=== PATIENT | male | born 1955 | race American Indian/Alaskan Native ===

== ENCOUNTER 2016-09-25 14:49 | Emergency (ER) | payer MEDICAID ==
[2016-09-25 15:34] LABS: Basophils % (Auto) 0.7 % (0.0-1.8); Eosinophils % (Auto) 0.4 % (0.0-4.3); Hematocrit 49.8 % (35.5-45.6); Hemoglobin 17.3 gm/dl (11.8-15.2); Mean Corpuscular HGB Conc 35 % (32-34); Mean Corpuscular Hemoglobin 31 pg (28-32); Mean Corpuscular Volume 88 fl (84-94); Platelet Count 162 K/mm3 (140-440); Red Blood Count 5.68 M/mm3 (3.65-5.03); Red Cell Distribution Width 13.3 % (13.2-15.2)
[2016-09-25 15:37] LABS: Anion Gap 25 mmol/L; Blood Urea Nitrogen 7 mg/dL (9-20); Carbon Dioxide 19 mmol/L (22-30); Chloride 98.2 mmol/L (98-107); Glucose 88 mg/dL (75-100); Potassium 3.2 mmol/L (3.6-5.0); Sodium 139 mmol/L (137-145)
[2016-09-25 16:11] LABS: Urine Drugs of Abuse Note Disclamer
[2016-09-25 16:18] LABS: Bilirubin,Urine NEG (Negative); Blood,Urine NEG (Negative); Ketones,Urine NEG (Negative); Leukocyte Esterase,Urine NEG (Negative); Nitrite,Urine NEG (Negative); Protein,Urine <15 mg/dL mg/dL (Negative); Urobilinogen,Urine < 2.0 mg/dL (<2.0)
--- NOTE | 2016-09-25 22:06 | Emergency Department Report ---
HPI - General Chief Complaint: Psych Time Seen by Provider: 09/25/16 21:30 - HPI HPI: This is a 60-year-old Afro-[place] male presents to the emergency department with complaint of depression, suicidal ideations and homicidal ideations. He has a past medical history of hypertension. He has a history of alcohol and drug abuse and a psychiatric history of schizophrenia. The patient says that he has been out of his medications including Zyprexa, Wellbutrin, trazodone. He says that 5 days ago he tried to overdose on some pills but was unsuccessful. He admits to drinking some alcohol this evening. He does not have a primary care physician or a psychiatrist and says he is looking for some help. There is no particular person that he is angry towards or has his homicidal ideations towards but just says that he has been very angry lately including at himself. ED Past Medical Hx - Past Medical History Hx Hypertension: Yes Hx Heart Attack/AMI: No Hx Congestive Heart Failure: No Hx Diabetes: No Hx Headaches / Migraines: Yes Hx Psychiatric Treatment: Yes (schizophrenia,alcohol abuse,drug abuse) Additional medical history: gout - Social History Smoking Status: Current Every Day Smoker Substance Use Type: Alcohol, Cocaine, Marijuana, Other - Medications Home Medications: Home Medications Medication Instructions Recorded Confirmed Last Taken Type OLANzapine [ZyPREXA] 5 mg PO DAILY 07/17/13 09/25/16 1 Month Ago History buPROPion [Wellbutrin] 100 mg PO DAILY 07/17/13 09/25/16 1 Month Ago History traZODone [Desyrel] 150 mg PO HS 07/17/13 09/25/16 1 Month Ago History Indomethacin 50 mg PO Q8H PRN #15 capsule 08/08/15 09/25/16 1 Month Ago Rx Lisinopril/Hydrochlorothiazide 1 tab PO QDAY #30 tablet 08/08/15 09/25/16 1 Month Ago Rx [Zestoretic 10-12.5 mg] methylPREDNISolone [Medrol Dose 4 mg PO QAM #1 pack 08/08/15 09/25/16 1 Month Ago Rx Ej] ED Review of Systems ROS: Stated complaint: SUICIDAL Other details as noted in HPI Comment: All other systems reviewed and negative Constitutional: denies: chills, fever Eyes: denies: eye pain, eye discharge, vision change ENT: denies: ear pain, throat pain Respiratory: denies: cough, shortness of breath, wheezing Cardiovascular: denies: chest pain, palpitations Gastrointestinal: denies: abdominal pain, nausea, diarrhea Genitourinary: denies: urgency, dysuria Musculoskeletal: denies: back pain, joint swelling, arthralgia Skin: denies: rash, lesions Neurological: denies: headache, weakness, paresthesias Psychiatric: depression, auditory hallucinations, homicidal thoughts, suicidal thoughts Physical Exam - Physical Exam Vital Signs: Vital Signs 09/25/16 14:54 Temperature 98.5 F Pulse Rate 108 H Respiratory 18 Rate Blood Pressure 146/111 O2 Sat by Pulse 97 Oximetry Physical Exam: GENERAL: The patient is well-developed well-nourished. HEENT: Normocephalic. Atraumatic. Extraocular motions are intact. Patient has moist mucous membranes. Pupils equal reactive to light bilaterally. NECK: Supple. Trachea is midline. CHEST/LUNGS: Clear to auscultation. There is no respiratory distress noted. HEART/CARDIOVASCULAR: Regular. There is no tachycardia. There is no gallop rub or murmur. ABDOMEN: Abdomen is soft, nontender. Patient has normal bowel sounds. There is no abdominal distention. SKIN: Skin is warm and dry. NEURO: The patient is awake, alert, and oriented. The patient is cooperative. The patient has no focal neurologic deficits. The patient has normal speech and gait. MUSCULOSKELETAL: There is no tenderness or deformity. There is no limitation range of motion. There is no evidence of acute injury. ED Course Vital Signs 09/25/16 14:54 Temperature 98.5 F Pulse Rate 108 H Respiratory 18 Rate Blood Pressure 146/111 O2 Sat by Pulse 97 Oximetry ED Medical Decision Making - Lab Data Result diagrams: 09/25/16 15:07 09/25/16 15:07 - Medical Decision Making 60-year-old male presents to the emergency department with complaint of depression, suicidal and homicidal ideations. There is some recent drug and alcohol abuse. His blood on-call level is at 0.08 and by the time I'm seeing him he is underneath the legal limit. Urine drug screen was positive for marijuana and cocaine use. The rest of his labs are mostly unremarkable. There is some mild decrease in the serum CO2 level. No electrolyte abnormalities, renal insufficiency, glucose abnormalities and no signs of infection. Vital signs stable throughout his ED course including being afebrile. Patient is awake and alert without any neurological deficits. He has been made a 1013 secondary to his suicidal and homicidal ideations. He appears medically cleared for psychiatric placement and the crisis therapist has been contacted to assist with placement. - Differential Diagnosis bipolar disorder, schizophrenia, schizoaffective, depression, substance abu Critical Care Time: No Critical care attestation.: If time is entered above; I have spent that time in minutes in the direct care of this critically ill patient, excluding procedure time. ED Disposition Clinical Impression: Suicidal ideations, Homicidal ideations Depression Qualifiers: Depression Type: unspecified Qualified Code(s): F32.9 - Major depressive disorder, single episode, unspecified Disposition: [id number]/[id number] PSY HOSP/PSY UNIT Is pt being admited?: No Condition: Stable Referrals: PRIMARY CAREMD [Primary Care Provider] - 3-5 Days Time of Disposition: 22:20
[2016-09-26] MEDS ORDERED: WELLBUTRIN PO SCH (10:00)
[2016-09-26] MEDS ORDERED: HCTZ PO SCH (10:00)
[2016-09-26] MEDS ORDERED: ZESTRIL PO SCH (10:00)
[2016-09-26 10:44] VITALS: BP 151/104
--- NOTE | 2016-09-26 11:29 | Consultation ---
History of Present Illness - Reason for Consult Consult date: 09/26/16 Reason for consult: depression Medications and Allergies Allergies Allergy/AdvReac Type Severity Reaction Status Date / Time No Known Allergies Allergy Unverified 07/17/13 16:00 Home Medications Medication Instructions Recorded Confirmed Last Taken Type OLANzapine [ZyPREXA] 5 mg PO DAILY 07/17/13 09/25/16 1 Month Ago History buPROPion [Wellbutrin] 100 mg PO DAILY 07/17/13 09/25/16 1 Month Ago History traZODone [Desyrel] 150 mg PO HS 07/17/13 09/25/16 1 Month Ago History Indomethacin 50 mg PO Q8H PRN #15 capsule 08/08/15 09/25/16 1 Month Ago Rx Lisinopril/Hydrochlorothiazide 1 tab PO QDAY #30 tablet 08/08/15 09/25/16 1 Month Ago Rx [Zestoretic 10-12.5 mg] methylPREDNISolone [Medrol Dose 4 mg PO QAM #1 pack 08/08/15 09/25/16 1 Month Ago Rx Ej] Active Meds: Active Medications Bupropion HCl (Wellbutrin) 100 mg PO DAILY [facility] Hydrochlorothiazide (Hctz) 12.5 mg PO QDAY [facility] Last Admin: 09/26/16 10:44 Dose: 12.5 mg Lisinopril (Zestril) 10 mg PO QDAY [facility] Last Admin: 09/26/16 10:44 Dose: 10 mg Olanzapine (Zyprexa) 5 mg PO DAILY [facility] Last Admin: 09/26/16 10:43 Dose: 5 mg Trazodone HCl (Desyrel) 150 mg PO [facility] Mental Status Exam - Vital signs Last Vital Signs Temp 98.7 F 09/26/16 10:47 Pulse 79 09/26/16 10:47 Resp 16 09/26/16 10:47 BP 151/104 09/26/16 10:47 Pulse Ox 100 09/26/16 10:47 Results Result Diagrams: 09/25/16 15:07 09/25/16 15:07 Abnormal lab results 09/25/16 09/25/16 09/25/16 Range/Units 15:07 15:07 15:07 RBC 5.68 H (3.65-5.03) M/mm3 Hgb 17.3 H (11.8-15.2) gm/dl Hct 49.8 H (35.5-45.6) % MCHC 35 H (32-34) % [place] % (Auto) 8.8 H (0.0-7.3) % Potassium 3.2 L (3.6-5.0) mmol/L Carbon Dioxide 19 L (22-30) mmol/L BUN 7 L (9-20) mg/dL Creatinine 0.7 L (0.8-1.5) mg/dL Plasma/Serum Alcohol 0.08 H (0-0.07) gm% All other labs normal. Assessment and Plan Assessment and plan: CHIEF COMPLAINT IN PATIENTS WORDS: HISTORY OF PRESENT ILLNESS REQUIRING ADMISSION TO INPATIENT LEVEL OF CARE: (Describe the onset of Illness, Intensity of Symptoms, and Circumstances Leading to Admission) This is a 60 year-old domiciled male who reports a formal PPH schizophrenia now presenting due to recent overdose on pills. Patient notes that he took the pills about a week ago. What he took it is unclear at this time. Patient does note that he is now homeless because his niece kicked him out of the house after the overdose. Patient notes that he's been having worsening thoughts of suicide in the past 3 weeks and has been having intrusive thoughts about killing himself. PSYCHIATRIC REVIEW OF SYSTEMS: Substance: None noted Depression: Withdrawn, depressed, suicidal thoughts with recent attempt Alicia: denies labile moods, no flight of ideas, recent impulsive behaviors Psychosis: no AVH. No paranoia/grandiosity/erotomania Anxiety/ OCD/ PTSD: Reports anxiety and constantly worrying Suicidality: Intrusive thoughts about suicide Other Self-Injurious Behavior: none currently, no SIB noted recently Violent/ Aggressive Behavior: Recent suicide attempt via overdose MEDICATIONS: ( Psychiatric and Non-psychiatric ) Zyprexa Wellbutrin Trazodone ALLERGIES: NKDA PAST PSYCHIATRIC HISTORY: ( Prior Treatment, Precipitating Factors, Diagnosis, and Course of Treatment ) Inpatient: Unknown Outpatient: Unknown Prior Suicide Attempts: Recent suicide attempt via overdose Prior Self-Injurious Behaviors: denies PAST PSYCHIATRIC MEDICATION TRIALS: Unknown to the patient MEDICAL HISTORY: (Chronic and Acute Illnesses, Current Medical Treatment, Recent Hospitalizations) Denies HISTORY OF TRAUMA/ABUSE: Patient denies on clinical examination DRUG / ALCOHOL ABUSE HISTORY: Denies Detoxification / Withdrawal: none noted SOCIAL HISTORY: (Educational Level, Employment, Support System, Interpersonal Relationships) Currently homeless, recently lived with his niece FAMILY HISTORY: Psychiatric/Substance Abuse MENTAL STATUS EXAM: General Appearance: casually dressed, in acute distress Sensorium/Consciousness: alert and responding to external stimuli Eye Contact: limited Attitude / Behavior: cooperative, but guarded Psychomotor & Musculoskeletal Activity: WNL Mood: fine Affect: constricted Speech / Language: normal Thought Processes: organized, logical, linear Thought Content: Suicidal thoughts, no HI Perception: no AVH Orientation: person, place, time and situation Judgment What would you do if you smelled smoke in a crowded movie theater?: poor/impulsive Insight: poor Intelligence Vocabulary, general fund of knowledge, educational level : Below Average Capacity of ADLs: Independent STRENGTHS: PSYCHOSOCIAL AND ENVIRONMENTAL STRESSORS: Homeless, chronic mental illness, poor social supports ADMITTING DIAGNOSES Psychiatric: Unspecified episodic mood disorder Evidence for the following: Reports historical diagnosis of schizophrenia Rule out bipolar disorder Medical: n/a INITIAL PLAN OF CARE AND TREATMENT GOALS: Reinitiate home medications of Zyprexa as a mood stabilizer Initiate lithium for the treatment of chronic suicidality Risk benefits of both treatment modalities has been discussed with the patient
[2016-09-26] MEDS ORDERED: K-DUR PO ONE (11:31)
[2016-09-26] MEDS ORDERED: ATIVAN PO ONE (11:31)
[2016-09-26] MEDS ORDERED: ESKALITH PO SCH (12:00)
[2016-09-26] MEDS ORDERED: ATIVAN PO PRN ×2 (12:13)
[2016-09-26 17:11] LABS: Basophils % (Auto) 0.7 % (0.0-1.8); Eosinophils % (Auto) 1.3 % (0.0-4.3); Hemoglobin 16.7 gm/dl (11.8-15.2); Mean Corpuscular HGB Conc 35 % (32-34); Mean Corpuscular Hemoglobin 31 pg (28-32); Mean Corpuscular Volume 88 fl (84-94); Platelet Count 135 K/mm3 (140-440); Red Blood Count 5.43 M/mm3 (3.65-5.03); Red Cell Distribution Width 12.9 % (13.2-15.2); White Blood Count 5.8 K/mm3 (4.5-11.0)
[2016-09-26] MEDS ORDERED: DESYREL PO SCH (22:00)
== END 2016-09-26 21:00 ==
LOC: ED 14:49 → EEVIPCON 14:49 → ED 09-26 21:00
DX: F20.9 Schizophrenia, unspecified (principal); I10 Essential (primary) hypertension; G43.909 Migraine, unspecified, not intractable, without status migrainosus; F17.210 Nicotine dependence, cigarettes, uncomplicated; F12.10 Cannabis abuse, uncomplicated; F14.10 Cocaine abuse, uncomplicated
CPT/HCPCS: 36415; 80048; 80307; 81001; 84484; 85025; 93005; 93010; 99285; G0480; 80320